=== PATIENT | female | born 1970 | race African-American/Black ===

== ENCOUNTER 2017-07-10 16:44 | Emergency (ER) | payer MEDICAID, OTHER ==
[~2017-07-10] VITALS: Ht 157.5 cm; Wt 102.0 kg
[~2017-07-10 16:44] MED LIST: ASPI-1079 PO; ASPI-1159 PO; IOHEXOL-350 100 ML BOTTLE ONE; LISI10TA5 PO; METF10002 PO; SODIUM CHLORIDE 0.9% 10ML VIAL ONE
[2017-07-10] MEDS ORDERED: FAMOTIDINE 20MG TABLET PO STA (18:50)
[2017-07-10] MEDS ORDERED: MAGNESIUM/ALUMINUM HYDROXIDE/SIMETHICONE 30ML UDC PO STA (18:50)
[2017-07-10 19:14] LABS: BASOPHILS % 0.9 % (0.0-2.0); EOSINOPHILS % 1.7 % (0.0-5.0); HEMOGLOBIN. 11.2 g/dL (12.0-16.0); LYMPHOCYTES % 22.9 % (20.0-50.0); MEAN CORPUSCULAR HEMOGLOBIN 26.7 pg (28.0-32.0); MEAN CORPUSCULAR VOLUME 81.3 fL (81.0-99.0); MEAN PLATELET VOLUME 8.3 fl (7.4-10.4); MONOCYTES % 7.1 % (2.0-8.0); NEUTROPHILS % 67.4 % (40.0-76.0); PLATELET 340 x1000/uL (130-400); RED BLOOD CELL COUNT 4.18 mill/uL (4.2-5.4); RED CELL DISTRIBUTION WIDTH 16.1 % (11.6-14.6)
[2017-07-10 19:28] LABS: CARBON DIOXIDE 27 mEq/L (21-32); CHLORIDE 105 mEq/L (98-107); HCG SCREEN NEGATIVE; TROPONIN I < 0.02 ng/mL (0.00-0.04)
[2017-07-10 19:29] LABS: D-DIMER 0.56 mg/L FEU (<0.50); INR 0.9; PARTIAL THROMBOPLASTIN TIME 22.3 sec (23.4-31.0); PROTHROMBIN TIME 9.8 sec (9.4-11.6)
[2017-07-10 23:25] VITALS: BP 139/85
== END 2017-07-10 23:27 | disposition home or self-care (01) ==
LOC: ER 20:58
DX: K29.70 Gastritis, unspecified, without bleeding (principal); R07.89 Other chest pain; I10 Essential (primary) hypertension; E11.9 Type 2 diabetes mellitus without complications; Z88.1 Allergy status to other antibiotic agents
CPT/HCPCS: 36415; 71010; 71275; 80053; 83690; 83880; 84443; 84484; 84703; 85025; 85379; 85610; 85730; 93005; 99285; A4216; Q9967; Z7610

== ENCOUNTER 2022-02-02 13:52 | Emergency (ER) | payer MEDICAID ==
[~2022-02-02] VITALS: Ht 157.5 cm; Wt 118.0 kg
[~2022-02-02 13:52] MED LIST changes: -ASPI-1159 PO; +ASPI-1497 PO; -IOHEXOL-350 100 ML BOTTLE ONE; +LISI10TA26 PO; -LISI10TA5 PO; +METF-416 PO; -METF10002 PO; -SODIUM CHLORIDE 0.9% 10ML VIAL ONE
[2022-02-02] MEDS ORDERED: KETOROLAC 30MG/ML VIAL IV NR (16:01)
[2022-02-02] MEDS ORDERED: SODIUM CHLORIDE 0.9% 1,000 ML IV ONE ×2 (16:15→21:45)
[2022-02-02 16:52] LABS: BASOPHILS % 0.9 % (0.0-2.0); EOSINOPHILS % 0.3 % (0.0-5.0); HEMATOCRIT. 42.7 % (36.0-48.0); HEMOGLOBIN. 13.8 g/dL (12.0-16.0); LYMPHOCYTES % 17.1 % (20.0-50.0); MEAN CORPUSCULAR HEMOGLOBIN 26.8 pg (28.0-32.0); MEAN PLATELET VOLUME 8.9 fl (7.4-10.4); MONOCYTES % 3.5 % (2.0-8.0); NEUTROPHILS % 78.2 % (40.0-76.0); PLATELET 283 x1000/uL (130-400); RED BLOOD CELL COUNT 5.15 mill/uL (4.2-5.4); RED CELL DISTRIBUTION WIDTH 16.9 % (11.6-14.6)
[2022-02-02 16:59] LABS: CHLORIDE 110 mEq/L (98-107)
[2022-02-02] MEDS ORDERED: TAMSULOSIN HCL 0.4MG SR CAPSULE PO ONE (21:45)
[2022-02-02] MEDS ORDERED: HYDROCODONE/ACETAMINOPHEN 10/325MG TABLET PO ONE (21:45)
[2022-02-02] MEDS ORDERED: ACETAMINOPHEN WITH CODEINE 300/60MG TABLET PO NR (22:15)
[2022-02-02] MEDS ORDERED: IBUP-2030 MT (22:40)
[2022-02-02] MEDS ORDERED: TAMS-11 MT (22:40)
[2022-02-02] MEDS ORDERED: ACET650T37 MT (22:40)
[2022-02-02] MEDS ORDERED: ACETAMINOPHEN 325MG TABLET PO ONE (22:45)
[2022-02-02 22:51] LABS: CLARITY URINE CLOUDY (CLEAR); COLOR URINE YELLOW (YELLOW); KETONES URINE TRACE (NEGATIVE); LEUKOCYTE ESTERASE URINE TRACE (NEGATIVE); NITRITE URINE NEGATIVE (NEGATIVE); OCCULT BLOOD URINE 1+ (NEGATIVE); PH URINE 5.5 (4.5-8.0); PROTEIN URINE 3+ (NEGATIVE); SPECIFIC GRAVITY URINE 1.025 (1.005-1.030); UROBILINOGEN URINE 0.2 E.U./dL (0.2-1.0)
[2022-02-02 23:03] VITALS: BP 180/85
[2022-02-02] MEDS ORDERED: CIPR-263 MT (23:59)
== END 2022-02-03 00:34 | disposition home or self-care (01) ==
LOC: ER 13:52
DX: N20.0 Calculus of kidney (principal); E11.9 Type 2 diabetes mellitus without complications; Z88.3 Allergy status to other anti-infective agents; Z79.82 Long term (current) use of aspirin; Z87.442 Personal history of urinary calculi; Z98.890 Other specified postprocedural states
CPT/HCPCS: 36415; 71045; 76770; 80053; 81003; 82962; 83690; 85025; 87077; 87086; 87186; 96361; 96374; 99285; J1885